=== PATIENT | female | born 2000 | race American Indian/Alaskan Native ===

== ENCOUNTER 2019-01-08 11:41 | Emergency (ER) | payer MEDICAID ==
[2019-01-08 11:57] VITALS: RESP 18; O2SAT 100
--- NOTE | 2019-01-08 13:04 | C.PDOC ---
History Of Present Illness 18 year old female presents to ED with complaint of left lower quadrant abdominal pain since this morning. Patient states that the pain radiates to her lower back. Patient states that it is difficult to move around and that is has been a long time since she has had this pain. Patient states she has experienced 3-4 episodes of diarrhea. Patient's LMP was on 12/23/18. Patient had a D&C before [place] for failed that was 8-9 weeks along. Patient denies fever, nausea, and vomiting. Time Seen by Provider: 01/08/19 11:54 Chief Complaint (Nursing): Abdominal Pain History Per: Patient History/Exam Limitations: no limitations Onset/Duration Of Symptoms: Hrs (4) Current Symptoms Are (Timing): Still Present Location Of Pain/Discomfort: LLQ Radiation Of Pain To:: Back (lower back) Quality Of Discomfort: "Pain" Associated Symptoms: Diarrhea, Back Pain. denies: Fever, Chills, Nausea, Vomiting Exacerbating Factors: Movement Alleviating Factors: None Last Bowel Movement: Today Abnormal Vaginal Bleeding: No Last Menstral Period: 12/23/18 Past Medical History Reviewed: Historical Data, Nursing Documentation, Vital Signs Vital Signs: Last Vital Signs Temp 97.6 F 01/08/19 11:52 Pulse 69 01/08/19 11:52 Resp 18 01/08/19 11:52 BP 110/71 01/08/19 11:52 Pulse Ox 100 01/08/19 11:52 - Medical History PMH: No Chronic Diseases Family History: States: Unknown Family Hx - Social History Hx Alcohol Use: Yes Hx Substance Use: Yes (Daily marijuana use) - Immunization History Hx Tetanus Toxoid Vaccination: No Hx Influenza Vaccination: No Hx Pneumococcal Vaccination: No Review Of Systems Constitutional: Negative for: Fever Gastrointestinal: Positive for: Abdominal Pain (left lower quadrant), Diarrhea. Negative for: Nausea, Vomiting Physical Exam - Physical Exam Appears: Non-toxic, No Acute Distress Skin: Normal Color, Warm, Dry Head: Atraumatic, Normacephalic Neck: Normal ROM, Supple Chest: Symmetrical, No Deformity Cardiovascular: Rhythm Regular, No Murmur Respiratory: No Accessory Muscle Use, No Rales, No Rhonchi, No Wheezing Gastrointestinal/Abdominal: Soft, No Tenderness Pelvic: No Vaginal Bleeding, Vaginal Discharge (yellow-manan/ white discharge), No Cervical Motion Tenderness, Adnexal Tenderness (left -sided) Extremity: Capillary Refill (<2 seconds) Neurological/Psych: Oriented x3, Normal Speech, Normal Cognition ED Course And Treatment - Laboratory Results Result Diagrams: 01/08/19 13:04 01/08/19 13:04 O2 Sat by Pulse Oximetry: 100 (in RA) Medical Decision Making Medical Decision Making: Plan: Labs ordered with CMP, CBC, and UA CXR ordered for patient Disposition - Disposition Referrals: Cj Lima MD [Staff Provider] - Krista Rush MD [Staff Provider] - [email or web address] [Outside] Disposition: HOME/ ROUTINE Disposition Time: 16:23 Condition: STABLE Additional Instructions: Follow up with the medical doctor within 1-2 days. Return if worsened. 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 (Sridevi Steele) - Scribe Statement The provider has reviewed the documentation as recorded by the Scribe (Sridevi Steele) All medical record entries made by the Scribe were at my direction and personally dictated by me. I have reviewed the chart and agree that the record accurately reflects my personal performance of the history, physical exam, medical decision making, and the department course for this patient. I have also personally directed, reviewed, and agree with the discharge instructions and d isposition.
--- NOTE | 2019-01-08 13:07 | RAD ---
Chest x-ray single frontal view History: Chest pain. Comparison: None available. Findings: No focal infiltrate or effusion. Heart size is within normal limits. Bibasilar breast and nipple shadows. Impression: No focal infiltrate or effusion.
[2019-01-08 13:38] LABS: BASO % 0.3 % (0.0-2.0); EOS # 0.1 K/uL (0.0-0.7); HEMOGLOBIN 13.3 g/dL (11.0-16.0); LYMPH # 1.3 K/uL (1.0-4.3); MEAN CELL VOLUME 89.4 fL (81.0-99.0); MEAN CORPUSCULAR HEMOGLOBIN 30.7 pg (27.0-31.0); MEAN CORPUSCULAR HGB CONC 34.3 g/dL (33.0-37.0); MEAN PLATELET VOLUME 10.2 fL (7.2-11.7); MONO # 0.9 K/uL (0.0-0.8); MONO % 18.9 % (0.0-10.0); NEUT # 2.5 K/uL (1.8-7.0); NEUT % 50.8 % (50.0-75.0); NRBC % 0.2 % (0.0-2.0); RBC 4.33 Mil/uL (3.80-5.20); RED CELL DISTRIBUTION WIDTH 13.6 % (11.5-14.5)
[2019-01-08 13:45] LABS: ALB/GLOB RATIO 1.5 (1.0-2.1); ALBUMIN 4.5 g/dL (3.5-5.0); ALT/SGPT 29 U/L (9-52); AST/SGOT 36 U/L (14-36); BLOOD UREA NITROGEN 8 mg/dL (7-17); CALCIUM 9.8 mg/dl (8.6-10.4); GFR NON-AFRICAN AMERICAN > 60; LIPASE 182 U/L (23-300)
[2019-01-08 14:08] LABS: HCG,QUALITATIVE URINE NEGATIVE (NEGATIVE)
[2019-01-08 14:13] LABS: SQUAMOUS EPITHIAL 7 /hpf (0-5)
--- NOTE | 2019-01-08 14:20 | US ---
Date of service: 01/08/2019 HISTORY: Left sided pelvic pain COMPARISON: None available. TECHNIQUE: Real-time transabdominal pelvic ultrasound was performed. In addition a transvaginal pelvic ultrasound was necessary to better depict pelvic anatomy. FINDINGS: UTERUS: Measures 8.0 x 4.5 x 5.8 cm. Retroverted. ENDOMETRIUM: Measures 1.4 cm in diameter. CERVIX: Cervix length measures approximately 2.9 cm. RIGHT OVARY: Measures 2.9 x 1.8 x 3.3 cm. Blood flow is demonstrated. LEFT OVARY: Measures 3.1 x 1.5 x 2.7 cm. Blood flow is demonstrated. FREE FLUID: Small pelvic free fluid. OTHER FINDINGS: None. IMPRESSION: Small pelvic free fluid.
[2019-01-08 14:21] LABS: URINE BILIRUBIN NEGATIVE (NEGATIVE); URINE CLARITY Clear (Clear); URINE COLOR YELLOW (YELLOW); URINE GLUCOSE (UA) NEGATIVE (Normal)
[2019-01-08 14:22] LABS: URINE BLOOD NEGATIVE (NEGATIVE); URINE LEUKOCYTE ESTERASE NEGATIVE Leu/uL (Negative); URINE PROTEIN NEGATIVE (NEGATIVE); URINE UROBILINOGEN 0.2 mg/dL (0.2-1.0)
[2019-01-08 15:03] VITALS: BP 113/77; PULSE 58; TEMP 98.2
== END 2019-01-08 17:02 | disposition home or self-care (01) ==
LOC: C.ER 11:41
DX: N83.209 Unspecified ovarian cyst, unspecified side (principal)
CPT/HCPCS: 71045; 76830; 76856; 80053; 81001; 83690; 84703; 85025; 87491; 87591; 96374; 96375; 99284; J1885